=== PATIENT | female | born 1980 ===

== ENCOUNTER 2021-12-12 20:24 | Emergency (ER) | payer OTHER ==
[~2021-12-12] VITALS: Ht 160 cm; Wt 68.0 kg
[~2021-12-12 20:24] MED LIST: SYNTHROID75 MCG
[2021-12-12] MEDS ORDERED: SYNTHROID300 MCG (20:54)
[2021-12-12] MEDS ORDERED: ESGIC 50-325-41 EACH (20:54)
[2021-12-13] MEDS ORDERED: NAPROXEN500 MG PO (00:46)
== END 2021-12-13 01:08 | disposition home or self-care (01) ==
LOC: ER 20:24
DX: G43.909 Migraine, unspecified, not intractable, without status migrainosus (principal); R11.0 Nausea